=== PATIENT | female | born 1960 | race Caucasian/White ===

== ENCOUNTER → 2018-10-20 | Outpatient (CLI) | payer BC ==
[~2018-10-20] MED LIST: ASPIRIN EC81 MG PO; DIAZEPAM5 MG PO; GLYBURIDE5 MG PO; LISINOPRIL2.5 MG PO; METFORMIN HCL500 MG PO; METOPROLOL TART25 MG PO; METOPROLOL TART50 MG PO; PANTOPRAZOLE SO40 MG PO; ULTRAM 50MG50 MG PO; VITAMIN B12-FO1 EACH PO
--- NOTE | 2018-10-20 12:45 | Diagnostic Imaging Report ---
CT of the chest, without contrast, 10/20/2018. History: Midsternal pain, cough. Comparison: None available. Technique: Multidetector CT scanning of the chest was performed from the level of the apices to the upper abdomen without contrast. Coronal and sagittal multiplanar reformations were obtained. RADIATION DOSE: Total DLP: 507 mGy*cm Dose modulation, iterative reconstruction, and/or weight based adjustment of the mA/kV was utilized to reduce the radiation dose to as low as reasonably achievable. Discussion: Evaluation is limited without IV contrast. Chest: A large pericardial effusion is present measuring up to 3 cm in thickness, measuring approximately 7 Hounsfield units in density. The heart, aorta, and pulmonary vessels are normal in size. There is calcification of the coronary arteries. The thyroid is unremarkable. Subcentimeter mediastinal lymph nodes are present. There is no gross evidence of adenopathy. A calcified granuloma is present in the right upper lobe. Subsegmental atelectasis is present within the left upper and lower lobes, with small left pleural effusion. Scattered linear opacities are present in the right lung. There is no suspicious nodule. Limited evaluation of the upper abdomen shows a 2.5 cm left adrenal hypodense lesion measuring -1 Hounsfield units in density. Right adrenal is unremarkable. Bones and soft tissues: No acute abnormality. Degenerative changes are present throughout the thoracic spine. IMPRESSION: 1. Large pericardial effusion. The findings were discussed with Dr. Griggs at 1300 on 10/20/2018. 2. Left lung atelectasis with small left pleural effusion. 3. Benign left adrenal adenoma. Signed by: Clarke Tavares on 10/20/2018 1:38 PM
== END ==
LOC: CT 10:35
PROVIDERS: ATTEND Internal Medicine Cardiovascular Disease
DX: I31.3 Pericardial effusion (noninflammatory) (principal)
CPT/HCPCS: 71250

== ENCOUNTER → 2021-08-12 | Day surgery (SDC) | payer BC, MEDICARE ==
[~2021-08-12] MED LIST changes: +AMLODIPINE BESYL5 MG PO; +ARICEPT5 MG PO; +CLONIDINE HCL0.2 MG PO; +FENTANYL CITRATE/PF 100MCG/2 ML INJ ONE; +FERROUS SULFAT325 MG PO; +HYDRALAZINE HCL50 MG PO; +ISOSORBIDE MONO20 MG PO; +LABETALOL HCL100 MG PO; +LIPITOR10 MG PO; +MIDAZOLAM HCL 2 MG/2 ML VIAL ONE; +OR PHACO EYE KIT ONE; +PLAVIX75 MG PO; +PREOP PHACO EYE KIT ONE; +SODIUM CHLORIDE 0.9% 500ML 500 ML ONE
[2021-08-12 11:21] LABS: BASOPHILS % 0.9 % (0.0-1.0); EOSINOPHILS # (AUTO) 0.2 (0.0-0.4); EOSINOPHILS % 5.6 % (0.0-6.0); HEMATOCRIT 38.7 % (34.2-44.1); HEMOGLOBIN 11.7 g/dL (12.0-16.0); LYMPHOCYTES # (AUTO) 0.6 (1.0-3.2); LYMPHOCYTES % 14.5 % (18.0-39.1); MEAN CORPUSCULAR HGB CONC 30.2 g/dL (31-35); MEAN CORPUSCULAR VOLUME 95.8 fL (81-99); MONOCYTES # (AUTO) 0.5 (0.2-0.8); MONOCYTES % 11.9 % (4.4-11.3); NEUTROPHILS # (AUTO) 2.9 (2.1-6.9); NEUTROPHILS % 67.1 % (38.7-80.0); PLATELET COUNT 148 x10e3/uL (140-360); RED BLOOD COUNT 4.04 x10e6/uL (3.6-5.1); RED CELL DISTRIBUTION WIDTH 15.5 % (11.7-14.4)
[2021-08-12 11:31] LABS: INR 1.07; PARTIAL THROMBOPLASTIN TIME 30.3 seconds (23.8-35.5); PROTHROMBIN TIME 14.9 seconds (11.9-14.5)
[2021-08-12 11:38] LABS: ANION GAP 16.5 mmol/L (8-16); CALCIUM 8.5 mg/dL (8.4-10.2); CREATININE, SERUM 6.35 mg/dL (0.57-1.11); POTASSIUM 4.5 mmol/L (3.5-5.1)
[2021-08-12 14:00] VITALS: BP 145/78
== END | disposition home or self-care (01) ==
LOC: OR 09:49
PROVIDERS: ATTEND Ophthalmology
DX: H25.11 Age-related nuclear cataract, right eye (principal); I12.0 Hypertensive chronic kidney disease with stage 5 chronic kidney disease or end stage renal disease; N18.6 End stage renal disease; R00.1 Bradycardia, unspecified; I25.10 Atherosclerotic heart disease of native coronary artery without angina pectoris; Z88.6 Allergy status to analgesic agent; Z88.0 Allergy status to penicillin; Z01.810 Encounter for preprocedural cardiovascular examination; Z01.812 Encounter for preprocedural laboratory examination; Z20.822 Contact with and (suspected) exposure to COVID-19; Z79.02 Long term (current) use of antithrombotics/antiplatelets; Z79.82 Long term (current) use of aspirin; Z79.899 Other long term (current) drug therapy; Z99.2 Dependence on renal dialysis; Z95.5 Presence of coronary angioplasty implant and graft; Z86.73 Personal history of transient ischemic attack (TIA), and cerebral infarction without residual deficits
CPT/HCPCS: 36415; 66984; 80048; 85025; 85610; 85730; 93005; J7040; U0002; J2250; J3010

== ENCOUNTER → 2021-09-02 | Day surgery (SDC) | payer BC, MEDICARE ==
[2021-09-02 11:07] LABS: ANION GAP 15.4 mmol/L (8-16); CALCIUM 8.6 mg/dL (8.4-10.2); CREATININE, SERUM 5.75 mg/dL (0.57-1.11); POTASSIUM 4.4 mmol/L (3.5-5.1)
[2021-09-02 14:10] VITALS: BP 163/71
== END | disposition home or self-care (01) ==
LOC: OR 09:50
PROVIDERS: ATTEND Ophthalmology
DX: H25.12 Age-related nuclear cataract, left eye (principal); I49.1 Atrial premature depolarization; E11.22 Type 2 diabetes mellitus with diabetic chronic kidney disease; I13.2 Hypertensive heart and chronic kidney disease with heart failure and with stage 5 chronic kidney disease, or end stage renal disease; N18.6 End stage renal disease; I50.9 Heart failure, unspecified; I25.10 Atherosclerotic heart disease of native coronary artery without angina pectoris; E78.5 Hyperlipidemia, unspecified; Z88.6 Allergy status to analgesic agent; Z88.0 Allergy status to penicillin; Z20.822 Contact with and (suspected) exposure to COVID-19; Z79.82 Long term (current) use of aspirin; Z79.02 Long term (current) use of antithrombotics/antiplatelets; Z79.899 Other long term (current) drug therapy; Z99.2 Dependence on renal dialysis; Z95.5 Presence of coronary angioplasty implant and graft; Z86.73 Personal history of transient ischemic attack (TIA), and cerebral infarction without residual deficits
CPT/HCPCS: 36415; 66984; 80048; J7040; U0002; V2632; J2250; J3010

== ENCOUNTER → 2021-12-10 | Outpatient (CLI) | payer BC, MEDICARE ==
[~2021-12-10] MED LIST changes: -FENTANYL CITRATE/PF 100MCG/2 ML INJ ONE; -MIDAZOLAM HCL 2 MG/2 ML VIAL ONE; -OR PHACO EYE KIT ONE; -PREOP PHACO EYE KIT ONE; -SODIUM CHLORIDE 0.9% 500ML 500 ML ONE
== END | disposition home or self-care (01) ==
LOC: RAD 10:30 → EDSTATUS 12-16 12:30
PROVIDERS: ATTEND Internal Medicine Gastroenterology
DX: Z12.11 Encounter for screening for malignant neoplasm of colon (principal); Z90.49 Acquired absence of other specified parts of digestive tract; Z53.9 Procedure and treatment not carried out, unspecified reason
CPT/HCPCS: 93005

== ENCOUNTER 2022-09-08 11:12 | Inpatient (IN) | payer BC, MEDICARE ==
[~2022-09-08] VITALS: Ht 165.1 cm; Wt 93.9 kg
[2022-09-08] MEDS ORDERED: ONDANSETRON HCL INJ 2MG/ML 2ML 2 MG/ML VIAL IV STA (11:27)
[2022-09-08] MEDS ORDERED: Morphine 2mg Syringe 2 MG/ML SYR IV STA (11:27)
[2022-09-08] MEDS ORDERED: CEFTRIAXONE 1 GM VIAL IM ONE (11:30)
[2022-09-08] MEDS ORDERED: Vancomycin IV 1 GM in SODIUM CHLORIDE 0.9% 250ML 250 ML IV ONE (12:00)
[2022-09-08 12:11] LABS: BASOPHILS % 0.4 % (0.0-1.0); EOSINOPHILS % 0.5 % (0.0-6.0); HEMATOCRIT 29.9 % (34.2-44.1); HEMOGLOBIN 9.3 g/dL (12.0-16.0); LYMPHOCYTES # (AUTO) 0.5 (1.0-3.2); LYMPHOCYTES % 8.3 % (18.0-39.1); MEAN CORPUSCULAR HEMOGLOBIN 30.8 pg (28-32); MEAN CORPUSCULAR HGB CONC 31.1 g/dL (31-35); MONOCYTES # (AUTO) 0.6 (0.2-0.8); MONOCYTES % 10.9 % (4.4-11.3); NEUTROPHILS # (AUTO) 4.5 (2.1-6.9); NEUTROPHILS % 79.5 % (38.7-80.0); PLATELET COUNT 142 x10e3/uL (140-360); RED BLOOD COUNT 3.02 x10e6/uL (3.6-5.1); RED CELL DISTRIBUTION WIDTH 15.9 % (11.7-14.4)
[2022-09-08 12:34] LABS: INR 1.25; PARTIAL THROMBOPLASTIN TIME 33.1 seconds (23.8-35.5); PROTHROMBIN TIME 16.2 seconds (11.9-14.5)
[2022-09-08 12:41] LABS: ALBUMIN 3.2 g/dL (3.5-5.0); ALBUMIN/GLOBULIN RATIO 0.8 (0.8-2.0); ALKALINE PHOSPHATASE 80 IU/L (40-150); ANION GAP 14.4 mmol/L (8-16); BLOOD UREA NITROGEN 11 mg/dL (7-26); BUN/CREATININE RATIO 2 (6-25); CALCIUM 9.1 mg/dL (8.4-10.2); CARBON DIOXIDE 29 mmol/L (22-29); CHLORIDE 97 mmol/L (98-107); CREATINE KINASE 99 IU/L (29-168); CREATININE, SERUM 5.07 mg/dL (0.57-1.11); GLUCOSE 67 mg/dL (74-118); POTASSIUM 3.4 mmol/L (3.5-5.1); SODIUM 137 mmol/L (136-145)
[2022-09-08 12:46] LABS: ALANINE AMINOTRANSFERASE < 6 IU/L (0-55)
[2022-09-08 12:47] LABS: B-TYPE NATRIURETIC PEPTIDE2 > 5000.0 pg/mL (0-100)
[2022-09-08] MEDS ORDERED: ONDANSETRON HCL INJ 2MG/ML 2ML 2 MG/ML VIAL IV PRN (13:45)
[2022-09-08] MEDS ORDERED: Morphine 2mg Syringe 2 MG/ML SYR IV PRN (13:45)
[2022-09-08 14:52] VITALS: PULSE 65; RESP 20; O2SAT 97
[2022-09-08 16:04] VITALS: BP 147/65; PULSE 56; RESP 20; TEMP 98; O2SAT 95
[2022-09-08 17:00] VITALS: BP 147/65; PULSE 56; RESP 20; TEMP 98; O2SAT 95
[2022-09-08 19:45] VITALS: PULSE 74; RESP 18; O2SAT 92
[2022-09-08] MEDS ORDERED: AMLODIPINE BESYLATE 5 MG TAB PO SCH (21:00)
[2022-09-08] MEDS ORDERED: LABETALOL HCL 100 MG TAB PO SCH (21:00)
[2022-09-08] MEDS: HYDRALAZINE HCL 25 MG TAB PO SCH (21:45)
[2022-09-08] MEDS: DONEPEZIL HCL 5 MG TAB PO SCH (21:46)
[2022-09-08] MEDS: ATORVASTATIN 10 MG TAB PO SCH (21:46)
[2022-09-08] MEDS: TRAMADOL HCL 50 MG TAB PO PRN (22:09)
[2022-09-09 00:56] VITALS: BP 129/65; PULSE 50; RESP 18; TEMP 98; O2SAT 92
[2022-09-09 05:49] LABS: BASOPHILS % 0.6 % (0.0-1.0); EOSINOPHILS # (AUTO) 0.1 (0.0-0.4); EOSINOPHILS % 1.3 % (0.0-6.0); HEMATOCRIT 30.3 % (34.2-44.1); HEMOGLOBIN 9.3 g/dL (12.0-16.0); LYMPHOCYTES # (AUTO) 0.5 (1.0-3.2); LYMPHOCYTES % 8.9 % (18.0-39.1); MEAN CORPUSCULAR HEMOGLOBIN 30.9 pg (28-32); MEAN CORPUSCULAR HGB CONC 30.7 g/dL (31-35); MEAN CORPUSCULAR VOLUME 100.7 fL (81-99); MONOCYTES # (AUTO) 0.6 (0.2-0.8); MONOCYTES % 11.4 % (4.4-11.3); NEUTROPHILS # (AUTO) 4.1 (2.1-6.9); NEUTROPHILS % 77.4 % (38.7-80.0); PLATELET COUNT 134 x10e3/uL (140-360); RED BLOOD COUNT 3.01 x10e6/uL (3.6-5.1); RED CELL DISTRIBUTION WIDTH 15.9 % (11.7-14.4)
[2022-09-09 06:24] LABS: ALBUMIN/GLOBULIN RATIO 0.8 (0.8-2.0); ALKALINE PHOSPHATASE 76 IU/L (40-150); ANION GAP 13.4 mmol/L (8-16); BLOOD UREA NITROGEN 13 mg/dL (7-26); BUN/CREATININE RATIO 2 (6-25); CALCIUM 8.8 mg/dL (8.4-10.2); CARBON DIOXIDE 27 mmol/L (22-29); CHLORIDE 98 mmol/L (98-107); GLUCOSE 69 mg/dL (74-118); POTASSIUM 3.4 mmol/L (3.5-5.1); SODIUM 135 mmol/L (136-145)
[2022-09-09 06:29] VITALS: PULSE 82; RESP 20; O2SAT 95
[2022-09-09 06:40] LABS: ALANINE AMINOTRANSFERASE < 6 IU/L (0-55)
[2022-09-09 08:29] VITALS: BP 166/76; PULSE 57; RESP 17; TEMP 97.9; O2SAT 93
[2022-09-09] MEDS ORDERED: LABETALOL HCL 200 MG TAB PO SCH (09:00)
[2022-09-09] MEDS: ISOSORBIDE MONONITRATE 20 MG TAB PO SCH ×2 (09:09→19:00)
[2022-09-09] MEDS: FERROUS SULFATE 325 MG TAB PO SCH (09:09)
[2022-09-09] MEDS: ASPIRIN 81 MG ENTERIC COATED PO SCH (09:10)
[2022-09-09] MEDS: HYDRALAZINE HCL 25 MG TAB PO SCH (09:10)
[2022-09-09] MEDS: CLONIDINE HCL 0.2 MG TAB PO SCH ×2 (09:11→18:59)
[2022-09-09] MEDS: CLOPIDOGREL BISULFATE 75 MG TAB PO SCH (09:12)
[2022-09-09] MEDS: TRAMADOL HCL 50 MG TAB PO PRN ×2 (09:19→19:26)
[2022-09-09] MEDS: SEVELAMER CARBONATE 800 MG TAB PO SCH ×2 (11:51→18:59)
[2022-09-09] MEDS ORDERED: EPOETIN ALFA-EPBX 10,000 UNIT/ML VIAL SC ONE (12:00)
[2022-09-09] MEDS ORDERED: SODIUM CHLORIDE 0.9% 1000ML 0 ML ONE (14:16)
[2022-09-09] MEDS ORDERED: SODIUM CHLORIDE 0.9% 1000ML 2,000 ML ONE (14:21)
[2022-09-09 18:25] VITALS: PULSE 85; RESP 20; O2SAT 97
[2022-09-09] MEDS: NIFEDIPINE CR 30 MG TAB PO SCH (19:00)
[2022-09-09] MEDS: LOSARTAN POTASSIUM 25 MG TAB PO SCH (19:01)
[2022-09-09 20:00] VITALS: BP 140/61; PULSE 59; RESP 22; TEMP 98.3; O2SAT 96
[2022-09-09 20:03] LABS: % IRON SATURATION 17 % (15-50); IRON 38 ug/dL (50-170); TOTAL IRON BINDING CAPACITY 225 ug/dL (261-478); TRANSFERRIN 161 mg/dL (180-382)
[2022-09-09] MEDS: ATORVASTATIN 10 MG TAB PO SCH (21:14)
[2022-09-09] MEDS: DONEPEZIL HCL 5 MG TAB PO SCH (21:14)
[2022-09-10] VITALS (9 sets, daily range): BP systolic 130–159; BP diastolic 57–95; PULSE 57–80; RESP 18–20; TEMP 98.4–99.3; O2SAT 92–99
[2022-09-10] MEDS: TRAMADOL HCL 50 MG TAB PO PRN ×2 (06:15→20:36)
[2022-09-10] MEDS: LOSARTAN POTASSIUM 25 MG TAB PO SCH ×2 (09:00→17:11)
[2022-09-10] MEDS: ISOSORBIDE MONONITRATE 20 MG TAB PO SCH ×2 (09:01→17:12)
[2022-09-10] MEDS: FERROUS SULFATE 325 MG TAB PO SCH (09:01)
[2022-09-10] MEDS: CLOPIDOGREL BISULFATE 75 MG TAB PO SCH (09:01)
[2022-09-10] MEDS: CLONIDINE HCL 0.2 MG TAB PO SCH ×2 (09:01→17:13)
[2022-09-10] MEDS: ASPIRIN 81 MG ENTERIC COATED PO SCH (09:02)
[2022-09-10] MEDS: IRON-VITAMIN-MINERAL CAPSULE PO SCH ×2 (09:02→17:10)
[2022-09-10] MEDS: SEVELAMER CARBONATE 800 MG TAB PO SCH ×3 (09:02→17:12)
[2022-09-10] MEDS: NIFEDIPINE CR 30 MG TAB PO SCH ×2 (09:02→17:12)
[2022-09-10] MEDS: FOLIC ACID 1 MG TAB PO SCH (09:02)
[2022-09-10] MEDS ORDERED: IOPAMIDOL 370 MG/ML 100 ML INFUS..BTL INJ ONE (10:55)
[2022-09-10] MEDS ORDERED: SODIUM CHLORIDE 0.9% 100 ML ONE (10:55)
[2022-09-10] MEDS: ATORVASTATIN 10 MG TAB PO SCH (20:36)
[2022-09-10] MEDS: DONEPEZIL HCL 5 MG TAB PO SCH (20:36)
[2022-09-11] VITALS (11 sets, daily range): BP systolic 128–172; BP diastolic 59–84; PULSE 57–74; RESP 20–21; TEMP 97.7–99.3; O2SAT 92–100
[2022-09-11] MEDS: TRAMADOL HCL 50 MG TAB PO PRN ×3 (05:33→20:06)
[2022-09-11] MEDS: SEVELAMER CARBONATE 800 MG TAB PO SCH ×4 (08:00→17:00)
[2022-09-11] MEDS ORDERED: SODIUM CHLORIDE 0.9% 1000ML 2,000 ML ONE (08:11)
[2022-09-11] MEDS: IRON-VITAMIN-MINERAL CAPSULE PO SCH ×2 (08:16→15:58)
[2022-09-11] MEDS: FOLIC ACID 1 MG TAB PO SCH (08:16)
[2022-09-11] MEDS: CLOPIDOGREL BISULFATE 75 MG TAB PO SCH (08:20)
[2022-09-11] MEDS: ASPIRIN 81 MG ENTERIC COATED PO SCH (08:20)
[2022-09-11] MEDS: ISOSORBIDE MONONITRATE 20 MG TAB PO SCH ×2 (08:20→16:01)
[2022-09-11] MEDS: FERROUS SULFATE 325 MG TAB PO SCH (08:21)
[2022-09-11] MEDS: CLONIDINE HCL 0.2 MG TAB PO SCH ×2 (08:22→16:00)
[2022-09-11] MEDS: NIFEDIPINE CR 30 MG TAB PO SCH ×2 (08:25→16:01)
[2022-09-11] MEDS: LOSARTAN POTASSIUM 25 MG TAB PO SCH ×2 (08:25→16:00)
[2022-09-11] MEDS: ATORVASTATIN 10 MG TAB PO SCH (20:05)
[2022-09-11] MEDS: DONEPEZIL HCL 5 MG TAB PO SCH (20:06)
[2022-09-12] VITALS (10 sets, daily range): BP systolic 122–161; BP diastolic 62–85; PULSE 63–77; RESP 16–19; TEMP 97.1–98.3; O2SAT 95–97
[2022-09-12] MEDS: TRAMADOL HCL 50 MG TAB PO PRN ×5 (00:46→21:39)
[2022-09-12 06:56] LABS: BASOPHILS # (AUTO) 0.1 (0.0-0.1); BASOPHILS % 0.8 % (0.0-1.0); EOSINOPHILS # (AUTO) 0.2 (0.0-0.4); EOSINOPHILS % 2.7 % (0.0-6.0); HEMATOCRIT 33.6 % (34.2-44.1); HEMOGLOBIN 10.2 g/dL (12.0-16.0); LYMPHOCYTES # (AUTO) 0.6 (1.0-3.2); LYMPHOCYTES % 9.5 % (18.0-39.1); MEAN CORPUSCULAR HEMOGLOBIN 30.9 pg (28-32); MEAN CORPUSCULAR HGB CONC 30.4 g/dL (31-35); MEAN CORPUSCULAR VOLUME 101.8 fL (81-99); MONOCYTES # (AUTO) 0.7 (0.2-0.8); MONOCYTES % 11.1 % (4.4-11.3); NEUTROPHILS # (AUTO) 4.5 (2.1-6.9); NEUTROPHILS % 75.6 % (38.7-80.0); PLATELET COUNT 125 x10e3/uL (140-360)
[2022-09-12 07:22] LABS: ANION GAP 14.1 mmol/L (8-16); CALCIUM 8.9 mg/dL (8.4-10.2); CREATININE, SERUM 5.02 mg/dL (0.57-1.11); POTASSIUM 4.1 mmol/L (3.5-5.1)
[2022-09-12] MEDS: SEVELAMER CARBONATE 800 MG TAB PO SCH ×3 (07:52→16:45)
[2022-09-12] MEDS: ASPIRIN 81 MG ENTERIC COATED PO SCH (08:37)
[2022-09-12] MEDS: CLONIDINE HCL 0.2 MG TAB PO SCH ×2 (08:38→16:46)
[2022-09-12] MEDS: IRON-VITAMIN-MINERAL CAPSULE PO SCH ×2 (08:39→16:44)
[2022-09-12] MEDS: CLOPIDOGREL BISULFATE 75 MG TAB PO SCH (08:39)
[2022-09-12] MEDS: FOLIC ACID 1 MG TAB PO SCH (08:39)
[2022-09-12] MEDS: FERROUS SULFATE 325 MG TAB PO SCH (08:39)
[2022-09-12] MEDS: ISOSORBIDE MONONITRATE 20 MG TAB PO SCH ×2 (08:40→16:45)
[2022-09-12] MEDS: LOSARTAN POTASSIUM 25 MG TAB PO SCH ×2 (08:40→16:45)
[2022-09-12] MEDS: NIFEDIPINE CR 30 MG TAB PO SCH ×2 (08:41→16:45)
[2022-09-12] MEDS: ATORVASTATIN 10 MG TAB PO SCH (20:35)
[2022-09-12] MEDS: DONEPEZIL HCL 5 MG TAB PO SCH (20:35)
[2022-09-13] VITALS (10 sets, daily range): BP systolic 128–154; BP diastolic 59–86; PULSE 56–69; RESP 18–20; TEMP 97.8–98.3; O2SAT 94–99
[2022-09-13] MEDS: TRAMADOL HCL 50 MG TAB PO PRN ×4 (01:57→21:16)
[2022-09-13] MEDS: SEVELAMER CARBONATE 800 MG TAB PO SCH ×3 (07:38→16:34)
[2022-09-13] MEDS: ASPIRIN 81 MG ENTERIC COATED PO SCH (07:39)
[2022-09-13] MEDS: FOLIC ACID 1 MG TAB PO SCH (07:39)
[2022-09-13] MEDS: IRON-VITAMIN-MINERAL CAPSULE PO SCH ×2 (07:39→16:33)
[2022-09-13] MEDS: FERROUS SULFATE 325 MG TAB PO SCH (07:39)
[2022-09-13] MEDS: CLOPIDOGREL BISULFATE 75 MG TAB PO SCH (07:39)
[2022-09-13] MEDS: LOSARTAN POTASSIUM 25 MG TAB PO SCH ×2 (07:39→16:35)
[2022-09-13] MEDS: ISOSORBIDE MONONITRATE 20 MG TAB PO SCH ×2 (07:40→16:35)
[2022-09-13] MEDS: CLONIDINE HCL 0.2 MG TAB PO SCH ×2 (07:40→16:34)
[2022-09-13] MEDS: NIFEDIPINE CR 30 MG TAB PO SCH ×2 (07:40→16:34)
[2022-09-13] MEDS: DONEPEZIL HCL 5 MG TAB PO SCH (21:16)
[2022-09-13] MEDS: ATORVASTATIN 10 MG TAB PO SCH (21:16)
[2022-09-14] VITALS (10 sets, daily range): BP systolic 140–174; BP diastolic 65–90; PULSE 19–60; RESP 18–21; TEMP 97–98.7; O2SAT 94–100
[2022-09-14] MEDS: TRAMADOL HCL 50 MG TAB PO PRN ×3 (01:26→17:32)
[2022-09-14] MEDS: SODIUM CHLORIDE 0.9% 1000ML 1,000 ML IV SCH (05:40)
[2022-09-14 06:25] LABS: BASOPHILS % 0.6 % (0.0-1.0); EOSINOPHILS # (AUTO) 0.1 (0.0-0.4); EOSINOPHILS % 1.8 % (0.0-6.0); HEMATOCRIT 32.1 % (34.2-44.1); HEMOGLOBIN 9.7 g/dL (12.0-16.0); LYMPHOCYTES # (AUTO) 0.5 (1.0-3.2); LYMPHOCYTES % 6.7 % (18.0-39.1); MEAN CORPUSCULAR HEMOGLOBIN 30.5 pg (28-32); MEAN CORPUSCULAR HGB CONC 30.2 g/dL (31-35); MEAN CORPUSCULAR VOLUME 100.9 fL (81-99); MONOCYTES # (AUTO) 0.8 (0.2-0.8); MONOCYTES % 10.8 % (4.4-11.3); NEUTROPHILS # (AUTO) 5.6 (2.1-6.9); NEUTROPHILS % 79.7 % (38.7-80.0); PLATELET COUNT 135 x10e3/uL (140-360); RED BLOOD COUNT 3.18 x10e6/uL (3.6-5.1); RED CELL DISTRIBUTION WIDTH 15.9 % (11.7-14.4)
[2022-09-14 07:31] LABS: ALBUMIN/GLOBULIN RATIO 0.7 (0.8-2.0); ANION GAP 15.1 mmol/L (8-16); CALCIUM 8.8 mg/dL (8.4-10.2); CREATININE, SERUM 7.63 mg/dL (0.57-1.11); POTASSIUM 4.1 mmol/L (3.5-5.1)
[2022-09-14] MEDS: SEVELAMER CARBONATE 800 MG TAB PO SCH ×3 (08:00→17:24)
[2022-09-14] MEDS: FOLIC ACID 1 MG TAB PO SCH (11:13)
[2022-09-14] MEDS: IRON-VITAMIN-MINERAL CAPSULE PO SCH ×2 (11:13→17:25)
[2022-09-14] MEDS: CLOPIDOGREL BISULFATE 75 MG TAB PO SCH (11:13)
[2022-09-14] MEDS: ASPIRIN 81 MG ENTERIC COATED PO SCH (11:14)
[2022-09-14] MEDS: CLONIDINE HCL 0.2 MG TAB PO SCH ×2 (11:14→17:25)
[2022-09-14] MEDS: ISOSORBIDE MONONITRATE 20 MG TAB PO SCH ×2 (11:14→17:26)
[2022-09-14] MEDS: FERROUS SULFATE 325 MG TAB PO SCH (11:15)
[2022-09-14] MEDS: NIFEDIPINE CR 30 MG TAB PO SCH ×2 (11:15→17:24)
[2022-09-14] MEDS: LOSARTAN POTASSIUM 25 MG TAB PO SCH ×2 (11:16→17:25)
[2022-09-14] MEDS ORDERED: LIDOCAINE HCL 2% LOCAL 20 ML VIAL ONE (12:43)
[2022-09-14] MEDS ORDERED: SODIUM CHLORIDE 0.9% 1000ML 1,000 ML ONE (12:43)
[2022-09-14] MEDS ORDERED: NITROGLYCERIN/D5W 200 MCG/ML 250 ML ONE (12:43)
[2022-09-14] MEDS ORDERED: IOPAMIDOL 370 MG/ML 100 ML INFUS..BTL INJ ONE (12:43)
[2022-09-14] MEDS ORDERED: HEPARIN SOD (PORCINE) 1000 UNIT/ML 30ML ONE (12:43)
[2022-09-14] MEDS ORDERED: HEPARIN SOD/SOD CHLORIDE 2,000 ML ONE (12:43)
[2022-09-14] MEDS ORDERED: BIVALRIUDIN 250 MG/VIAL VIAL IV ONE (12:47)
[2022-09-14] MEDS ORDERED: MIDAZOLAM HCL 2 MG/2 ML VIAL ONE (12:57)
[2022-09-14] MEDS ORDERED: FENTANYL CITRATE/PF 100MCG/2 ML INJ ONE (12:57)
[2022-09-14] MEDS ORDERED: ASPIRIN 325 MG TAB ONE (14:06)
[2022-09-14] MEDS ORDERED: CLOPIDOGREL BISULFATE 75 MG TAB ONE (14:06)
[2022-09-14] MEDS: DONEPEZIL HCL 5 MG TAB PO SCH (20:24)
[2022-09-14] MEDS: ATORVASTATIN 10 MG TAB PO SCH (20:24)
[2022-09-15] MEDS: TRAMADOL HCL 50 MG TAB PO PRN ×5 (00:09→18:37)
[2022-09-15 00:40] VITALS: BP 135/69; PULSE 61; RESP 21; TEMP 98.1; O2SAT 93
[2022-09-15] MEDS: SODIUM CHLORIDE 0.9% 1000ML 1,000 ML IV SCH ×2 (02:00→22:00)
[2022-09-15 05:52] LABS: BASOPHILS # (AUTO) 0.1 (0.0-0.1); BASOPHILS % 0.7 % (0.0-1.0); EOSINOPHILS # (AUTO) 0.1 (0.0-0.4); EOSINOPHILS % 1.5 % (0.0-6.0); HEMATOCRIT 33.4 % (34.2-44.1); HEMOGLOBIN 10.1 g/dL (12.0-16.0); LYMPHOCYTES # (AUTO) 0.6 (1.0-3.2); LYMPHOCYTES % 7.9 % (18.0-39.1); MEAN CORPUSCULAR HEMOGLOBIN 30.5 pg (28-32); MEAN CORPUSCULAR HGB CONC 30.2 g/dL (31-35); MEAN CORPUSCULAR VOLUME 100.9 fL (81-99); MONOCYTES # (AUTO) 0.8 (0.2-0.8); NEUTROPHILS # (AUTO) 5.7 (2.1-6.9); NEUTROPHILS % 78.3 % (38.7-80.0); PLATELET COUNT 133 x10e3/uL (140-360); RED BLOOD COUNT 3.31 x10e6/uL (3.6-5.1); RED CELL DISTRIBUTION WIDTH 15.9 % (11.7-14.4)
[2022-09-15 06:29] LABS: ALBUMIN 2.9 g/dL (3.5-5.0); ALBUMIN/GLOBULIN RATIO 0.6 (0.8-2.0); ANION GAP 15.7 mmol/L (8-16); CALCIUM 8.7 mg/dL (8.4-10.2); CREATININE, SERUM 5.87 mg/dL (0.57-1.11); POTASSIUM 4.7 mmol/L (3.5-5.1)
[2022-09-15 08:22] VITALS: BP 151/68; PULSE 60; RESP 19; TEMP 97.8; O2SAT 97
[2022-09-15] MEDS: CLOPIDOGREL BISULFATE 75 MG TAB PO SCH (09:00)
[2022-09-15] MEDS: ASPIRIN 81 MG ENTERIC COATED PO SCH (09:00)
[2022-09-15] MEDS: IRON-VITAMIN-MINERAL CAPSULE PO SCH ×2 (09:20→17:40)
[2022-09-15] MEDS: SEVELAMER CARBONATE 800 MG TAB PO SCH ×3 (09:20→17:39)
[2022-09-15] MEDS: CLONIDINE HCL 0.2 MG TAB PO SCH ×2 (09:20→17:40)
[2022-09-15] MEDS: FERROUS SULFATE 325 MG TAB PO SCH (09:21)
[2022-09-15] MEDS: NIFEDIPINE CR 30 MG TAB PO SCH ×2 (09:21→17:39)
[2022-09-15] MEDS: LOSARTAN POTASSIUM 25 MG TAB PO SCH ×2 (09:21→17:40)
[2022-09-15] MEDS: ISOSORBIDE MONONITRATE 20 MG TAB PO SCH ×2 (09:22→17:40)
[2022-09-15] MEDS: FOLIC ACID 1 MG TAB PO SCH (09:23)
[2022-09-15 11:46] VITALS: BP 147/74; PULSE 63; RESP 20; TEMP 98; O2SAT 98
[2022-09-15] MEDS ORDERED: ONDANSETRON HCL 4 MG ORAL DISINTEGRATING TAB PO PRN (13:45)
[2022-09-15 15:59] VITALS: BP 140/71; PULSE 63; RESP 19; TEMP 98.3; O2SAT 95
[2022-09-15 20:28] VITALS: BP 142/69; PULSE 60; RESP 20; TEMP 98.5; O2SAT 99
[2022-09-15 20:30] VITALS: BP 142/69; PULSE 60; RESP 20; TEMP 98.5; O2SAT 99
[2022-09-15] MEDS: DONEPEZIL HCL 5 MG TAB PO SCH (21:59)
[2022-09-15] MEDS: ATORVASTATIN 10 MG TAB PO SCH (22:00)
[2022-09-16] VITALS (8 sets, daily range): BP systolic 129–161; BP diastolic 63–75; PULSE 56–80; RESP 16–21; TEMP 97.7–98.3; O2SAT 96–99
[2022-09-16 06:23] LABS: ALBUMIN 2.6 g/dL (3.5-5.0); ALBUMIN/GLOBULIN RATIO 0.6 (0.8-2.0); ANION GAP 15.8 mmol/L (8-16); CALCIUM 8.2 mg/dL (8.4-10.2); CREATININE, SERUM 6.56 mg/dL (0.57-1.11); POTASSIUM 3.8 mmol/L (3.5-5.1)
[2022-09-16] MEDS ORDERED: DEXAMETHASONE SOD PHOS INJ 4 MG/ML SDV ONE (07:18)
[2022-09-16] MEDS ORDERED: BUPIVACAINE HCL 0.5% INJ 30 ML VIAL INJ ONE (07:18)
[2022-09-16] MEDS: SEVELAMER CARBONATE 800 MG TAB PO SCH ×3 (08:00→17:00)
[2022-09-16] MEDS: FOLIC ACID 1 MG TAB PO SCH (09:37)
[2022-09-16] MEDS: NIFEDIPINE CR 30 MG TAB PO SCH ×2 (09:38→18:13)
[2022-09-16] MEDS: LOSARTAN POTASSIUM 25 MG TAB PO SCH ×2 (09:41→18:18)
[2022-09-16] MEDS: IRON-VITAMIN-MINERAL CAPSULE PO SCH ×2 (09:42→18:12)
[2022-09-16] MEDS: FERROUS SULFATE 325 MG TAB PO SCH (09:43)
[2022-09-16] MEDS: ASPIRIN 81 MG ENTERIC COATED PO SCH (09:43)
[2022-09-16] MEDS: CLONIDINE HCL 0.2 MG TAB PO SCH ×2 (09:46→18:11)
[2022-09-16] MEDS: CLOPIDOGREL BISULFATE 75 MG TAB PO SCH (10:30)
[2022-09-16] MEDS: ISOSORBIDE MONONITRATE 20 MG TAB PO SCH ×2 (12:06→18:09)
[2022-09-16] MEDS ORDERED: FENTANYL CITRATE/PF 100MCG/2 ML INJ ONE (12:55)
[2022-09-16] MEDS ORDERED: MIDAZOLAM HCL 2 MG/2 ML VIAL ONE (12:55)
[2022-09-16] MEDS ORDERED: LIDOCAINE HCL 2% LOCAL INJ 5 ML SDV VIAL INJ ONE (13:17)
[2022-09-16] MEDS ORDERED: PROPOFOL IV EMULSION 10 MG/ML 20 ML VIAL ONE (13:17)
[2022-09-16] MEDS ORDERED: POVIDONE IODINE 0.05% 0.05 % ML PO ONE (13:17)
[2022-09-16] MEDS: TRAMADOL HCL 50 MG TAB PO PRN ×2 (13:40→18:08)
[2022-09-16] MEDS: SODIUM CHLORIDE 0.9% 1000ML 1,000 ML IV SCH (18:19)
[2022-09-16] MEDS: KETOROLAC TROMETHAMINE 30 MG/ML VIAL IV PRN (19:00)
[2022-09-16] MEDS ORDERED: TRAMADOL HCL 50 MG TAB PO PRN (19:30)
[2022-09-16] MEDS: GABAPENTIN 300 MG CAP PO SCH (21:33)
[2022-09-16] MEDS: DONEPEZIL HCL 5 MG TAB PO SCH (21:33)
[2022-09-16] MEDS: ATORVASTATIN 10 MG TAB PO SCH (21:33)
[2022-09-17] MEDS: TRAMADOL HCL 50 MG TAB PO PRN ×3 (00:01→18:36)
[2022-09-17 05:15] VITALS: BP 160/72; PULSE 62; RESP 21; TEMP 98.7; O2SAT 97
[2022-09-17 08:15] VITALS: BP 156/77; PULSE 88; RESP 19; TEMP 98.3; O2SAT 97
[2022-09-17] MEDS: NIFEDIPINE CR 30 MG TAB PO SCH ×2 (08:55→18:45)
[2022-09-17] MEDS: SEVELAMER CARBONATE 800 MG TAB PO SCH ×3 (08:55→18:45)
[2022-09-17] MEDS: ASPIRIN 81 MG ENTERIC COATED PO SCH (08:57)
[2022-09-17] MEDS: ISOSORBIDE MONONITRATE 20 MG TAB PO SCH ×2 (08:57→18:50)
[2022-09-17] MEDS: FERROUS SULFATE 325 MG TAB PO SCH (08:57)
[2022-09-17] MEDS: CLOPIDOGREL BISULFATE 75 MG TAB PO SCH (08:58)
[2022-09-17] MEDS: IRON-VITAMIN-MINERAL CAPSULE PO SCH ×2 (08:58→18:44)
[2022-09-17] MEDS: LOSARTAN POTASSIUM 25 MG TAB PO SCH ×2 (08:58→18:46)
[2022-09-17] MEDS: FOLIC ACID 1 MG TAB PO SCH (08:58)
[2022-09-17] MEDS: CLONIDINE HCL 0.2 MG TAB PO SCH ×2 (08:59→18:45)
[2022-09-17] MEDS: GABAPENTIN 300 MG CAP PO SCH ×2 (08:59→18:45)
[2022-09-17 09:00] VITALS: BP 149/76; PULSE 83; RESP 21; TEMP 98.3; O2SAT 97
[2022-09-17 11:27] VITALS: BP 149/76; PULSE 83; RESP 21; TEMP 98.3; O2SAT 97
[2022-09-17 20:00] VITALS: BP 153/71; PULSE 71; RESP 22; TEMP 98.5; O2SAT 96
[2022-09-17] MEDS: SODIUM CHLORIDE 0.9% 1000ML 1,000 ML IV SCH (21:30)
[2022-09-17] MEDS: ATORVASTATIN 10 MG TAB PO SCH (21:31)
[2022-09-17] MEDS: DONEPEZIL HCL 5 MG TAB PO SCH (21:31)
[2022-09-18] VITALS (11 sets, daily range): BP systolic 128–161; BP diastolic 59–75; PULSE 59–83; RESP 16–21; TEMP 98.7–99.9; O2SAT 93–99
[2022-09-18 05:45] LABS: BASOPHILS % 0.6 % (0.0-1.0); EOSINOPHILS # (AUTO) 0.1 (0.0-0.4); EOSINOPHILS % 1.3 % (0.0-6.0); HEMATOCRIT 28.8 % (34.2-44.1); HEMOGLOBIN 8.7 g/dL (12.0-16.0); LYMPHOCYTES # (AUTO) 0.6 (1.0-3.2); LYMPHOCYTES % 8.6 % (18.0-39.1); MEAN CORPUSCULAR HEMOGLOBIN 30.4 pg (28-32); MEAN CORPUSCULAR HGB CONC 30.2 g/dL (31-35); MEAN CORPUSCULAR VOLUME 100.7 fL (81-99); MONOCYTES # (AUTO) 1.4 (0.2-0.8); MONOCYTES % 21.1 % (4.4-11.3); NEUTROPHILS # (AUTO) 4.4 (2.1-6.9); NEUTROPHILS % 68.1 % (38.7-80.0); PLATELET COUNT 143 x10e3/uL (140-360); RED BLOOD COUNT 2.86 x10e6/uL (3.6-5.1); RED CELL DISTRIBUTION WIDTH 16.1 % (11.7-14.4)
[2022-09-18 06:23] LABS: ALBUMIN 2.6 g/dL (3.5-5.0); ALBUMIN/GLOBULIN RATIO 0.6 (0.8-2.0); ANION GAP 12.8 mmol/L (8-16); CALCIUM 8.4 mg/dL (8.4-10.2); CREATININE, SERUM 6.21 mg/dL (0.57-1.11); POTASSIUM 3.8 mmol/L (3.5-5.1)
[2022-09-18] MEDS: SEVELAMER CARBONATE 800 MG TAB PO SCH ×3 (08:00→16:30)
[2022-09-18] MEDS: LOSARTAN POTASSIUM 25 MG TAB PO SCH ×2 (09:00→16:31)
[2022-09-18] MEDS: CLONIDINE HCL 0.2 MG TAB PO SCH ×2 (09:00→16:29)
[2022-09-18] MEDS: ISOSORBIDE MONONITRATE 20 MG TAB PO SCH ×2 (09:00→16:31)
[2022-09-18] MEDS: NIFEDIPINE CR 30 MG TAB PO SCH ×2 (09:00→16:30)
[2022-09-18] MEDS: IRON-VITAMIN-MINERAL CAPSULE PO SCH ×2 (11:36→16:32)
[2022-09-18] MEDS: FERROUS SULFATE 325 MG TAB PO SCH (11:37)
[2022-09-18] MEDS: FOLIC ACID 1 MG TAB PO SCH (11:37)
[2022-09-18] MEDS: CLOPIDOGREL BISULFATE 75 MG TAB PO SCH (11:37)
[2022-09-18] MEDS: GABAPENTIN 300 MG CAP PO SCH ×2 (11:37→16:29)
[2022-09-18] MEDS: ASPIRIN 81 MG ENTERIC COATED PO SCH (11:37)
[2022-09-18] MEDS: TRAMADOL HCL 50 MG TAB PO PRN ×2 (11:38→18:41)
[2022-09-18] MEDS: SODIUM CHLORIDE 0.9% 1000ML 1,000 ML IV SCH (11:54)
[2022-09-18] MEDS: KETOROLAC TROMETHAMINE 30 MG/ML VIAL IV PRN (13:08)
[2022-09-18] MEDS: DONEPEZIL HCL 5 MG TAB PO SCH (21:02)
[2022-09-18] MEDS: ATORVASTATIN 10 MG TAB PO SCH (21:02)
[2022-09-19] VITALS (7 sets, daily range): BP systolic 126–159; BP diastolic 63–76; PULSE 65–72; RESP 17–20; TEMP 97.2–99.6; O2SAT 91–96
[2022-09-19] MEDS: SODIUM CHLORIDE 0.9% 1000ML 1,000 ML IV SCH ×2 (02:35→21:42)
[2022-09-19] MEDS: TRAMADOL HCL 50 MG TAB PO PRN ×2 (04:54→22:00)
[2022-09-19] MEDS: SEVELAMER CARBONATE 800 MG TAB PO SCH ×3 (08:00→16:59)
[2022-09-19 08:08] LABS: BASOPHILS # (AUTO) 0.1 (0.0-0.1); BASOPHILS % 0.8 % (0.0-1.0); EOSINOPHILS # (AUTO) 0.2 (0.0-0.4); EOSINOPHILS % 2.6 % (0.0-6.0); HEMATOCRIT 31.3 % (34.2-44.1); HEMOGLOBIN 9.2 g/dL (12.0-16.0); LYMPHOCYTES # (AUTO) 0.6 (1.0-3.2); LYMPHOCYTES % 9.2 % (18.0-39.1); MEAN CORPUSCULAR HGB CONC 29.4 g/dL (31-35); MONOCYTES % 16.3 % (4.4-11.3); NEUTROPHILS # (AUTO) 4.4 (2.1-6.9); NEUTROPHILS % 70.6 % (38.7-80.0); PLATELET COUNT 150 x10e3/uL (140-360); RED BLOOD COUNT 3.07 x10e6/uL (3.6-5.1); RED CELL DISTRIBUTION WIDTH 15.9 % (11.7-14.4)
[2022-09-19] MEDS: ASPIRIN 81 MG ENTERIC COATED PO SCH (08:41)
[2022-09-19] MEDS: CLONIDINE HCL 0.2 MG TAB PO SCH ×2 (08:42→16:44)
[2022-09-19] MEDS: LOSARTAN POTASSIUM 25 MG TAB PO SCH ×2 (08:45→16:44)
[2022-09-19] MEDS: FOLIC ACID 1 MG TAB PO SCH (08:46)
[2022-09-19] MEDS: CLOPIDOGREL BISULFATE 75 MG TAB PO SCH (08:46)
[2022-09-19] MEDS: GABAPENTIN 300 MG CAP PO SCH ×2 (08:46→16:45)
[2022-09-19] MEDS: ISOSORBIDE MONONITRATE 20 MG TAB PO SCH ×2 (08:46→16:44)
[2022-09-19] MEDS: IRON-VITAMIN-MINERAL CAPSULE PO SCH ×2 (08:46→16:44)
[2022-09-19] MEDS: FERROUS SULFATE 325 MG TAB PO SCH (08:46)
[2022-09-19] MEDS: NIFEDIPINE CR 30 MG TAB PO SCH ×2 (08:47→16:45)
[2022-09-19] MEDS: DONEPEZIL HCL 5 MG TAB PO SCH (21:42)
[2022-09-19] MEDS: ATORVASTATIN 10 MG TAB PO SCH (21:42)
[2022-09-20] VITALS (8 sets, daily range): BP systolic 129–159; BP diastolic 61–84; PULSE 66–81; RESP 19–26; TEMP 97.3–100.3; O2SAT 89–98
[2022-09-20] MEDS: SEVELAMER CARBONATE 800 MG TAB PO SCH ×3 (07:30→17:02)
[2022-09-20 08:24] LABS: BASOPHILS # (AUTO) 0.1 (0.0-0.1); BASOPHILS % 0.8 % (0.0-1.0); EOSINOPHILS # (AUTO) 0.1 (0.0-0.4); EOSINOPHILS % 1.5 % (0.0-6.0); HEMATOCRIT 30.6 % (34.2-44.1); LYMPHOCYTES # (AUTO) 0.8 (1.0-3.2); LYMPHOCYTES % 10.2 % (18.0-39.1); MEAN CORPUSCULAR HEMOGLOBIN 29.8 pg (28-32); MEAN CORPUSCULAR HGB CONC 29.4 g/dL (31-35); MEAN CORPUSCULAR VOLUME 101.3 fL (81-99); MONOCYTES # (AUTO) 0.9 (0.2-0.8); MONOCYTES % 12.7 % (4.4-11.3); NEUTROPHILS # (AUTO) 5.5 (2.1-6.9); NEUTROPHILS % 74.3 % (38.7-80.0); PLATELET COUNT 173 x10e3/uL (140-360); RED BLOOD COUNT 3.02 x10e6/uL (3.6-5.1); RED CELL DISTRIBUTION WIDTH 15.9 % (11.7-14.4)
[2022-09-20] MEDS: ISOSORBIDE MONONITRATE 20 MG TAB PO SCH ×2 (08:34→17:03)
[2022-09-20] MEDS: ASPIRIN 81 MG ENTERIC COATED PO SCH (08:34)
[2022-09-20] MEDS: GABAPENTIN 300 MG CAP PO SCH ×2 (08:35→17:02)
[2022-09-20] MEDS: NIFEDIPINE CR 30 MG TAB PO SCH ×2 (08:35→17:04)
[2022-09-20] MEDS: FERROUS SULFATE 325 MG TAB PO SCH (08:35)
[2022-09-20] MEDS: LOSARTAN POTASSIUM 25 MG TAB PO SCH ×2 (08:35→17:03)
[2022-09-20] MEDS: FOLIC ACID 1 MG TAB PO SCH (08:35)
[2022-09-20] MEDS: CLONIDINE HCL 0.2 MG TAB PO SCH ×2 (08:36→17:04)
[2022-09-20] MEDS: CLOPIDOGREL BISULFATE 75 MG TAB PO SCH (08:36)
[2022-09-20] MEDS: IRON-VITAMIN-MINERAL CAPSULE PO SCH ×2 (08:36→17:04)
[2022-09-20 08:42] LABS: ALBUMIN 2.2 g/dL (3.5-5.0); ALBUMIN/GLOBULIN RATIO 0.6 (0.8-2.0); ANION GAP 14.4 mmol/L (8-16); CALCIUM 7.1 mg/dL (8.4-10.2); CREATININE, SERUM 5.07 mg/dL (0.57-1.11); POTASSIUM 3.4 mmol/L (3.5-5.1)
[2022-09-20] MEDS: TRAMADOL HCL 50 MG TAB PO PRN ×2 (08:48→15:31)
[2022-09-20] MEDS ORDERED: ALBUTEROL/IPRATROPIUM 3 ML NEB NEB PRN (10:15)
[2022-09-20] MEDS ORDERED: ACETAMINOPHEN 325 MG TAB PO PRN (10:30)
[2022-09-20] MEDS: ALBUTEROL/IPRATROPIUM 3 ML NEB NEB SCH ×2 (11:34→18:45)
[2022-09-20] MEDS ORDERED: DIPHENHYDRAMINE HCL INJ 50 MG/ML VIAL IV PRN (14:30)
[2022-09-20] MEDS: ATORVASTATIN 10 MG TAB PO SCH (20:39)
[2022-09-20] MEDS: DONEPEZIL HCL 5 MG TAB PO SCH (20:39)
[2022-09-21] VITALS (13 sets, daily range): BP systolic 127–156; BP diastolic 71–84; PULSE 65–92; RESP 20–24; TEMP 97.3–98.4; O2SAT 92–98
[2022-09-21] MEDS: ALBUTEROL/IPRATROPIUM 3 ML NEB NEB SCH ×4 (00:30→19:10)
[2022-09-21] MEDS: TRAMADOL HCL 50 MG TAB PO PRN ×4 (03:48→20:42)
[2022-09-21] MEDS: SEVELAMER CARBONATE 800 MG TAB PO SCH ×3 (07:56→17:31)
[2022-09-21] MEDS: CLONIDINE HCL 0.2 MG TAB PO SCH ×2 (09:38→17:31)
[2022-09-21] MEDS: IRON-VITAMIN-MINERAL CAPSULE PO SCH ×2 (09:39→17:31)
[2022-09-21] MEDS: ASPIRIN 81 MG ENTERIC COATED PO SCH (09:39)
[2022-09-21] MEDS: GABAPENTIN 300 MG CAP PO SCH ×2 (09:39→17:31)
[2022-09-21] MEDS: CLOPIDOGREL BISULFATE 75 MG TAB PO SCH (09:39)
[2022-09-21] MEDS: NIFEDIPINE CR 30 MG TAB PO SCH ×2 (09:39→17:30)
[2022-09-21] MEDS: FOLIC ACID 1 MG TAB PO SCH (09:39)
[2022-09-21] MEDS: FERROUS SULFATE 325 MG TAB PO SCH (09:39)
[2022-09-21] MEDS: ISOSORBIDE MONONITRATE 20 MG TAB PO SCH ×2 (09:40→17:29)
[2022-09-21] MEDS: LOSARTAN POTASSIUM 25 MG TAB PO SCH ×2 (09:41→17:30)
[2022-09-21 10:52] LABS: BASOPHILS % 0.5 % (0.0-1.0); EOSINOPHILS # (AUTO) 0.2 (0.0-0.4); EOSINOPHILS % 2.3 % (0.0-6.0); HEMATOCRIT 29.4 % (34.2-44.1); HEMOGLOBIN 9.1 g/dL (12.0-16.0); LYMPHOCYTES # (AUTO) 0.5 (1.0-3.2); LYMPHOCYTES % 7.5 % (18.0-39.1); MONOCYTES # (AUTO) 0.8 (0.2-0.8); NEUTROPHILS # (AUTO) 5.1 (2.1-6.9); NEUTROPHILS % 77.2 % (38.7-80.0); PLATELET COUNT 171 x10e3/uL (140-360); RED BLOOD COUNT 3.03 x10e6/uL (3.6-5.1); RED CELL DISTRIBUTION WIDTH 15.9 % (11.7-14.4)
[2022-09-21 11:20] LABS: ANION GAP 17.1 mmol/L (8-16); CALCIUM 8.4 mg/dL (8.4-10.2); CREATININE, SERUM 7.05 mg/dL (0.57-1.11); POTASSIUM 4.1 mmol/L (3.5-5.1)
[2022-09-21] MEDS: ATORVASTATIN 10 MG TAB PO SCH (20:41)
[2022-09-21] MEDS: DONEPEZIL HCL 5 MG TAB PO SCH (20:41)
[2022-09-22] VITALS (12 sets, daily range): BP systolic 138–155; BP diastolic 71–93; PULSE 67–96; RESP 18–22; TEMP 97.6–98.9; O2SAT 92–99
[2022-09-22] MEDS: ALBUTEROL/IPRATROPIUM 3 ML NEB NEB SCH ×4 (00:05→20:05)
[2022-09-22] MEDS: SEVELAMER CARBONATE 800 MG TAB PO SCH ×3 (09:02→16:12)
[2022-09-22] MEDS: FERROUS SULFATE 325 MG TAB PO SCH (09:03)
[2022-09-22] MEDS: GABAPENTIN 300 MG CAP PO SCH ×2 (09:03→16:12)
[2022-09-22] MEDS: CLOPIDOGREL BISULFATE 75 MG TAB PO SCH (09:03)
[2022-09-22] MEDS: IRON-VITAMIN-MINERAL CAPSULE PO SCH ×2 (09:03→16:13)
[2022-09-22] MEDS: ASPIRIN 81 MG ENTERIC COATED PO SCH (09:03)
[2022-09-22] MEDS: FOLIC ACID 1 MG TAB PO SCH (09:03)
[2022-09-22] MEDS: LOSARTAN POTASSIUM 25 MG TAB PO SCH ×2 (09:05→16:13)
[2022-09-22] MEDS: CLONIDINE HCL 0.2 MG TAB PO SCH ×2 (09:05→16:12)
[2022-09-22] MEDS: ISOSORBIDE MONONITRATE 20 MG TAB PO SCH ×2 (09:05→16:15)
[2022-09-22] MEDS: TRAMADOL HCL 50 MG TAB PO PRN ×2 (09:06→16:22)
[2022-09-22] MEDS: NIFEDIPINE CR 30 MG TAB PO SCH ×2 (09:06→16:13)
[2022-09-22] MEDS ORDERED: WATER STERILE 10 ML VIAL IV ONE (15:45)
[2022-09-22] MEDS: METHYLPREDNISOLONE SOD SUCC 40 MG/ML VIAL 1ML IV SCH ×2 (16:12→21:25)
[2022-09-22] MEDS: DONEPEZIL HCL 5 MG TAB PO SCH (21:19)
[2022-09-22] MEDS: ATORVASTATIN 10 MG TAB PO SCH (21:20)
[2022-09-23] VITALS (14 sets, daily range): BP systolic 134–170; BP diastolic 56–97; PULSE 60–81; RESP 18–28; TEMP 97.6–98.3; O2SAT 95–100
[2022-09-23] MEDS: ALBUTEROL/IPRATROPIUM 3 ML NEB NEB SCH ×5 (01:30→23:00)
[2022-09-23 05:45] LABS: BASOPHILS % 0.2 % (0.0-1.0); HEMATOCRIT 31.1 % (34.2-44.1); HEMOGLOBIN 9.4 g/dL (12.0-16.0); LYMPHOCYTES # (AUTO) 0.4 (1.0-3.2); LYMPHOCYTES % 6.4 % (18.0-39.1); MEAN CORPUSCULAR HEMOGLOBIN 29.7 pg (28-32); MEAN CORPUSCULAR HGB CONC 30.2 g/dL (31-35); MEAN CORPUSCULAR VOLUME 98.4 fL (81-99); MONOCYTES # (AUTO) 0.2 (0.2-0.8); MONOCYTES % 3.5 % (4.4-11.3); NEUTROPHILS # (AUTO) 5.6 (2.1-6.9); NEUTROPHILS % 89.3 % (38.7-80.0); PLATELET COUNT 170 x10e3/uL (140-360); RED BLOOD COUNT 3.16 x10e6/uL (3.6-5.1); RED CELL DISTRIBUTION WIDTH 15.6 % (11.7-14.4)
[2022-09-23 06:15] LABS: ALBUMIN 2.7 g/dL (3.5-5.0); ALBUMIN/GLOBULIN RATIO 0.6 (0.8-2.0); ANION GAP 14.3 mmol/L (8-16); CALCIUM 8.7 mg/dL (8.4-10.2); CREATININE, SERUM 6.67 mg/dL (0.57-1.11); POTASSIUM 4.3 mmol/L (3.5-5.1)
[2022-09-23] MEDS: SEVELAMER CARBONATE 800 MG TAB PO SCH ×3 (08:47→17:28)
[2022-09-23] MEDS: FERROUS SULFATE 325 MG TAB PO SCH (09:55)
[2022-09-23] MEDS: GABAPENTIN 300 MG CAP PO SCH ×2 (09:56→17:00)
[2022-09-23] MEDS: CLOPIDOGREL BISULFATE 75 MG TAB PO SCH (09:56)
[2022-09-23] MEDS: LOSARTAN POTASSIUM 25 MG TAB PO SCH ×2 (09:56→17:00)
[2022-09-23] MEDS: NIFEDIPINE CR 30 MG TAB PO SCH ×2 (09:57→17:00)
[2022-09-23] MEDS: IRON-VITAMIN-MINERAL CAPSULE PO SCH ×2 (09:57→17:00)
[2022-09-23] MEDS: ISOSORBIDE MONONITRATE 20 MG TAB PO SCH ×2 (09:57→17:00)
[2022-09-23] MEDS: CLONIDINE HCL 0.2 MG TAB PO SCH ×2 (09:58→17:00)
[2022-09-23] MEDS: ASPIRIN 81 MG ENTERIC COATED PO SCH (09:58)
[2022-09-23] MEDS: FOLIC ACID 1 MG TAB PO SCH (09:58)
[2022-09-23] MEDS: METHYLPREDNISOLONE SOD SUCC 40 MG/ML VIAL 1ML IV SCH ×2 (10:25→20:09)
[2022-09-23 10:52] LABS: CHOL/HDL RATIO 2.2 (3.0-3.6)
[2022-09-23] MEDS: TRAMADOL HCL 50 MG TAB PO PRN (19:58)
[2022-09-23] MEDS: DONEPEZIL HCL 5 MG TAB PO SCH (20:09)
[2022-09-23] MEDS: ATORVASTATIN 10 MG TAB PO SCH (20:09)
[2022-09-23] MEDS ORDERED: ATORVASTATIN 20 MG TAB PO SCH (21:00)
[2022-09-23] MEDS ORDERED: METHYLPREDNISOLONE SOD SUCC 40 MG/ML VIAL 1ML IV SCH (21:00)
[2022-09-24] VITALS (11 sets, daily range): BP systolic 148–172; BP diastolic 71–85; PULSE 67–85; RESP 18–20; TEMP 97.5–98.7; O2SAT 96–100
[2022-09-24] MEDS: TRAMADOL HCL 50 MG TAB PO PRN ×3 (03:17→20:23)
[2022-09-24] MEDS: ALBUTEROL/IPRATROPIUM 3 ML NEB NEB SCH (07:30)
[2022-09-24] MEDS: SEVELAMER CARBONATE 800 MG TAB PO SCH ×3 (07:30→16:51)
[2022-09-24] MEDS: GABAPENTIN 300 MG CAP PO SCH ×2 (08:28→16:51)
[2022-09-24] MEDS: FERROUS SULFATE 325 MG TAB PO SCH (08:28)
[2022-09-24] MEDS: NIFEDIPINE CR 30 MG TAB PO SCH ×2 (08:28→16:51)
[2022-09-24] MEDS: ISOSORBIDE MONONITRATE 20 MG TAB PO SCH ×2 (08:29→16:52)
[2022-09-24] MEDS: LOSARTAN POTASSIUM 25 MG TAB PO SCH ×2 (08:29→16:52)
[2022-09-24] MEDS: ASPIRIN 81 MG ENTERIC COATED PO SCH (08:29)
[2022-09-24] MEDS: CLOPIDOGREL BISULFATE 75 MG TAB PO SCH (08:30)
[2022-09-24] MEDS: FOLIC ACID 1 MG TAB PO SCH (08:30)
[2022-09-24] MEDS: CLONIDINE HCL 0.2 MG TAB PO SCH ×2 (08:30→16:53)
[2022-09-24] MEDS: IRON-VITAMIN-MINERAL CAPSULE PO SCH ×2 (08:30→16:52)
[2022-09-24] MEDS: METHYLPREDNISOLONE SOD SUCC 40 MG/ML VIAL 1ML IV SCH ×2 (08:31→20:21)
[2022-09-24] MEDS: IPRATROPIUM BROMIDE 0.02% 2.5 ML NEB NEB SCH ×2 (13:10→19:20)
[2022-09-24] MEDS: ALBUTEROL SULF 0.083% NEB SOLN 3 ML NEB NEB SCH ×2 (13:10→19:20)
[2022-09-24] MEDS: DONEPEZIL HCL 5 MG TAB PO SCH (20:20)
[2022-09-24] MEDS: ATORVASTATIN 10 MG TAB PO SCH (20:21)
[2022-09-25] VITALS (9 sets, daily range): BP systolic 130–178; BP diastolic 57–91; PULSE 71–97; RESP 20–22; TEMP 97.4–98.8; O2SAT 94–100
[2022-09-25] MEDS: ALBUTEROL SULF 0.083% NEB SOLN 3 ML NEB NEB SCH ×3 (00:30→13:41)
[2022-09-25] MEDS: IPRATROPIUM BROMIDE 0.02% 2.5 ML NEB NEB SCH ×3 (00:30→13:41)
[2022-09-25] MEDS: TRAMADOL HCL 50 MG TAB PO PRN ×2 (02:57→13:30)
[2022-09-25] MEDS: SEVELAMER CARBONATE 800 MG TAB PO SCH ×2 (07:30→11:30)
[2022-09-25] MEDS ORDERED: SODIUM CHLORIDE 0.9% 1000ML 2,000 ML ONE (08:01)
[2022-09-25 08:28] LABS: ALBUMIN 2.8 g/dL (3.5-5.0); ALBUMIN/GLOBULIN RATIO 0.6 (0.8-2.0); ANION GAP 17.4 mmol/L (8-16); CALCIUM 8.5 mg/dL (8.4-10.2); CREATININE, SERUM 6.04 mg/dL (0.57-1.11); POTASSIUM 4.4 mmol/L (3.5-5.1)
[2022-09-25] MEDS ORDERED: SODIUM CHLORIDE 0.9% 1000ML 2,000 ML IV PRN (08:45)
[2022-09-25] MEDS: ASPIRIN 81 MG ENTERIC COATED PO SCH (09:00)
[2022-09-25] MEDS: METHYLPREDNISOLONE SOD SUCC 40 MG/ML VIAL 1ML IV SCH (09:00)
[2022-09-25] MEDS ORDERED: CARVEDILOL 12.5 MG TAB PO SCH (11:00)
[2022-09-25] MEDS: NIFEDIPINE CR 30 MG TAB PO SCH (13:30)
[2022-09-25] MEDS: GABAPENTIN 300 MG CAP PO SCH (13:30)
[2022-09-25] MEDS: LOSARTAN POTASSIUM 25 MG TAB PO SCH (13:31)
[2022-09-25] MEDS: FERROUS SULFATE 325 MG TAB PO SCH (13:32)
[2022-09-25] MEDS: FOLIC ACID 1 MG TAB PO SCH (13:33)
[2022-09-25] MEDS: ISOSORBIDE MONONITRATE 20 MG TAB PO SCH (13:33)
[2022-09-25] MEDS: IRON-VITAMIN-MINERAL CAPSULE PO SCH (13:33)
[2022-09-25] MEDS: CLOPIDOGREL BISULFATE 75 MG TAB PO SCH (13:37)
[2022-09-25] MEDS: CLONIDINE HCL 0.2 MG TAB PO SCH (13:38)
[2022-09-25] MEDS ORDERED: KEFLEX125 MG/5 M PO (16:28)
== END 2022-09-25 18:30 | disposition home or self-care (01) | DRG 252 ==
LOC: ER 11:24 → ERHOLD 13:35 → MED/SURG3 16:04
PROVIDERS: ADMIT Family Medicine; ATTEND Family Medicine
PROC: 5A1D70Z Performance of Urinary Filtration, Intermittent, Less than 6 Hours Per Day (ICD-10-PCS; 2022-09-09)
PROC: X27J385 Dilation of Left Femoral Artery with Sustained Release Drug-eluting Intraluminal Device, Percutaneous Approach, New Technology Group 5 (ICD-10-PCS; principal; 2022-09-14)
PROC: 047S3ZZ Dilation of Left Posterior Tibial Artery, Percutaneous Approach (ICD-10-PCS; 2022-09-14)
PROC: B4101ZZ Fluoroscopy of Abdominal Aorta using Low Osmolar Contrast (ICD-10-PCS; 2022-09-14)
PROC: B41G1ZZ Fluoroscopy of Left Lower Extremity Arteries using Low Osmolar Contrast (ICD-10-PCS; 2022-09-14)
PROC: B41F1ZZ Fluoroscopy of Right Lower Extremity Arteries using Low Osmolar Contrast (ICD-10-PCS; 2022-09-14)
PROC: 047N3Z1 Dilation of Left Popliteal Artery using Drug-Coated Balloon, Percutaneous Approach (ICD-10-PCS; 2022-09-14)
PROC: B41D1ZZ Fluoroscopy of Aorta and Bilateral Lower Extremity Arteries using Low Osmolar Contrast (ICD-10-PCS; 2022-09-14)
PROC: 0Y6Q0Z0 Detachment at Left 1st Toe, Complete, Open Approach (ICD-10-PCS; 2022-09-16)
DX: I70.262 Atherosclerosis of native arteries of extremities with gangrene, left leg (principal); J18.9 Pneumonia, unspecified organism; J96.01 Acute respiratory failure with hypoxia; N18.6 End stage renal disease; I13.2 Hypertensive heart and chronic kidney disease with heart failure and with stage 5 chronic kidney disease, or end stage renal disease; I50.42 Chronic combined systolic (congestive) and diastolic (congestive) heart failure; M86.9 Osteomyelitis, unspecified; E11.22 Type 2 diabetes mellitus with diabetic chronic kidney disease; Z99.2 Dependence on renal dialysis; Z20.822 Contact with and (suspected) exposure to COVID-19; F41.9 Anxiety disorder, unspecified; K21.9 Gastro-esophageal reflux disease without esophagitis; Z88.0 Allergy status to penicillin; Z59.6 Low income; Z79.02 Long term (current) use of antithrombotics/antiplatelets; Z79.82 Long term (current) use of aspirin; L03.032 Cellulitis of left toe; L03.031 Cellulitis of right toe; I25.10 Atherosclerotic heart disease of native coronary artery without angina pectoris; D63.1 Anemia in chronic kidney disease; B19.20 Unspecified viral hepatitis C without hepatic coma; I25.2 Old myocardial infarction; K74.60 Unspecified cirrhosis of liver; I27.20 Pulmonary hypertension, unspecified; R29.6 Repeated falls; I89.0 Lymphedema, not elsewhere classified; E11.69 Type 2 diabetes mellitus with other specified complication; E11.51 Type 2 diabetes mellitus with diabetic peripheral angiopathy without gangrene; H91.90 Unspecified hearing loss, unspecified ear; E66.9 Obesity, unspecified; Z68.34 Body mass index [BMI] 34.0-34.9, adult; E78.5 Hyperlipidemia, unspecified; F03.90 Unspecified dementia, unspecified severity, without behavioral disturbance, psychotic disturbance, mood disturbance, and anxiety; J44.9 Chronic obstructive pulmonary disease, unspecified; Z95.5 Presence of coronary angioplasty implant and graft; Z86.73 Personal history of transient ischemic attack (TIA), and cerebral infarction without residual deficits; Z90.49 Acquired absence of other specified parts of digestive tract; Z87.891 Personal history of nicotine dependence
CPT/HCPCS: 0223U; 36415; 37224; 37228; 71045; 71250; 75625; 75635; 75716; 76705; 80048; 80053; 80061; 82270; 82550; 82607; 82746; 83540; 83605; 83880; 84466; 84484; 85025; 85045; 85610; 85730; 86704; 86706; 87040; 87340; 88304; 88305; 88311; 90962; 93005; 93306; 93925; 93970; 94060; 94640; 94799; 96361; 99152; 99153; 99252; 99284; C1725; C1769; C1887; C1894; C2623; J0583; J0696; J1100; J1644; J1885; J2001; J2185; J2250; J2270; J2405; J2920; J7030; J7050; Q9967